=== PATIENT | female | born 1985 | race African-American/Black ===

== ENCOUNTER 2016-07-07 08:37 | Emergency (ER) | payer OTHER ==
[~2016-07-07] VITALS: Ht 157.5 cm; Wt 129.0 kg
[~2016-07-07 08:37] MED LIST: CIPRO500 MG PO; FLAGYL500 MG PO; HYDROCODON-ACE1 EAC7 PO; LISINOPRIL-HCT1 EAC3 PO; OMEPRAZOLE20 MG PO; PEN-VEE K,VEET500 MG PO; PERCOCET 5/31 TABLET PO; PRILOSEC20 MG PO; ULTRAM50 MG PO; ZOFRAN4 MG PO
[2016-07-07 09:43] LABS: EOSINOPHIL (%) 7.1 % (0-5); EOSINOPHIL COUNT 0.4 K/uL (0-0.3); HEMATOCRIT 33.1 % (36.0-46.0); IMMATURE GRANULOCYTE (%) 0.4 % (0.0-0.7); INSTRUMENT ABS NEUTROPHIL CT 2.5 K/uL; LYMPHOCYTE COUNT 2.1 K/uL (1.0-2.8); MCH 26.3 PG (29.0-34.0); MCHC 31.4 G/DL (30.0-36.0); MCV 83.8 FL (83-99); MEAN PLAT.VOLUME 9.9 uM^3 (9.5-12.4); MONOCYTE (%) 5.6 % (3-12); MONOCYTE COUNT 0.3 K/uL (0-0.8); NEUTROPHIL (%) 47.7 % (45-76); NEUTROPHIL COUNT 2.5 K/uL (1.8-6.4); PLATELET COUNT 327 K/uL (156-360); RBC DIS.WIDTH-CV 14.9 % (11.8-14.6); RBC DIS.WIDTH-SD 45.4 % (39-53); RED BLOOD COUNT 3.95 M/uL (3.80-5.20); WHITE BLOOD COUNT 5.3 K/uL (4.1-10.2)
[2016-07-07 09:52] LABS: CHLORIDE 107 mEq/L (99-109); POTASSIUM 4.6 mEq/L (3.7-5.4); SODIUM 139 mEq/L (136-147)
[2016-07-07 09:54] LABS: GLUCOSE 119 mg/dL (70-99)
[2016-07-07 09:55] LABS: ANION GAP 10 MEQ/L (2-14)
[2016-07-07 09:56] LABS: TOTAL BILIRUBIN 0.3 mg/dL (0.0-1.0)
[2016-07-07 09:57] LABS: ALKALINE PHOSPHATASE 37 IU/L (3-129)
[2016-07-07 09:58] LABS: GFR ESTIMATE (CALCULATED) > 59 mL/min/
[2016-07-07 09:59] LABS: UREA NITROGEN (BUN) 10 mg/dL (9-23)
[2016-07-07 10:01] LABS: LIPASE 14 U/L (1.0-51.0)
[2016-07-07 10:08] LABS: QUANTITATIVE HCG < 4.0 MIU/ML
[2016-07-07 10:12] LABS: ADD MIUA? YES; BILIRUBIN NEGATIVE; BLOOD NEGATIVE; COLOR YELLOW ((YELLOW)); GLUCOSE (STRIP) NEGATIVE; KETONES NEGATIVE; LEUKOCYTES NEGATIVE; NITRITE NEGATIVE; PROTEIN (STRIP) 100; SPECIFIC GRAVITY 1.023 (1.000-1.030); UROBILINOGEN 0.2 MG/DL (0.2-1.0)
[2016-07-07 10:17] LABS: BACTERIA NONE SEEN /HPF; EPITHELIAL CELLS RARE /HPF; MUCUS TRACE /LPF; RED BLOOD CELLS 0-5 /HPF (0-5); WHITE BLOOD CELLS 0-5 /HPF (0-5)
[2016-07-07] MEDS ORDERED: TYLENOL WITH C1 EACH PO (13:25)
[2016-07-07 13:56] VITALS: BP 122/76
== END 2016-07-07 13:59 | disposition home or self-care (01) ==
LOC: EME 08:37
PROVIDERS: Emergency Medicine
DX: R10.9 Unspecified abdominal pain (principal); J06.9 Acute upper respiratory infection, unspecified; R11.0 Nausea; I10 Essential (primary) hypertension; F17.200 Nicotine dependence, unspecified, uncomplicated
CPT/HCPCS: 74176; 80053; 81003; 83690; 84702; 85025; 99281; 99285; J2270; J7030

== ENCOUNTER 2016-07-21 14:41 | Emergency (ER) | payer OTHER ==
[~2016-07-21] VITALS: Ht 157.5 cm; Wt 130.0 kg
[~2016-07-21 14:41] MED LIST changes: +TYLENOL WITH C1 EACH PO
[2016-07-21 14:43] VITALS: BP 170/110
[2016-07-21] MEDS ORDERED: PATANOL OP100 DROP/5 LEFT EYE (16:56)
== END 2016-07-21 17:44 | disposition home or self-care (01) ==
LOC: EME 14:41
DX: H11.32 Conjunctival hemorrhage, left eye (principal); H11.422 Conjunctival edema, left eye
CPT/HCPCS: 99281; 99284

== ENCOUNTER 2017-05-01 05:27 | Emergency (ER) | payer OTHER ==
[~2017-05-01] VITALS: Ht 157.5 cm; Wt 126.3 kg
[~2017-05-01 05:27] MED LIST changes: +PATANOL OP100 DROP/5 LEFT EYE
[2017-05-01 06:05] LABS: HEMATOCRIT 35.7 % (36.0-46.0); HEMOGLOBIN 11.6 G/DL (11.9-15.5); MCH 27.3 PG (29.0-34.0); MCHC 32.5 G/DL (30.0-36.0); PLATELET COUNT 328 K/uL (156-360); RBC DIS.WIDTH-CV 14.4 % (11.8-14.6); RBC DIS.WIDTH-SD 44.2 % (39-53); RED BLOOD COUNT 4.25 M/uL (3.80-5.20); WHITE BLOOD COUNT 8.4 K/uL (4.1-10.2)
[2017-05-01 06:14] LABS: CHLORIDE 105 mEq/L (99-109); POTASSIUM 4.2 mEq/L (3.7-5.4); SODIUM 138 mEq/L (136-147)
[2017-05-01 06:15] LABS: GLUCOSE 131 mg/dL (70-99)
[2017-05-01 06:19] LABS: CREATININE 0.6 mg/dL (0.6-1.3); GFR ESTIMATE (CALCULATED) > 59 mL/min/
[2017-05-01 06:20] LABS: UREA NITROGEN (BUN) 8 mg/dL (9-23)
[2017-05-01] MEDS ORDERED: DELTASONE20 M1 PO (06:48)
[2017-05-01 07:01] VITALS: BP 180/99
== END 2017-05-01 07:03 | disposition home or self-care (01) ==
LOC: EME 05:27
DX: J04.0 Acute laryngitis (principal); J02.9 Acute pharyngitis, unspecified
CPT/HCPCS: 71046; 80048; 85027; 87651 90; 99281; 99284